=== PATIENT | female | born 1980 | race Two or more races ===

== ENCOUNTER 2017-12-12 06:03 | Day surgery (SDC) | payer SELFPAY ==
[2017-12-11 11:45] VITALS: BMI 22.1
[2017-12-12] MEDS ORDERED: BUPIVACAINE 0.25% /EPI 1:200,000 10 ML VIAL INF ONE (08:15)
--- NOTE | 2017-12-12 11:35 | OP ---
Operative Note - Note: Operative Date: 12/12/17 Pre-Operative Diagnosis: hypermastia Operation: Bilateral breast reduction Findings: hypermastia Implants: none Post-Operative Diagnosis: Same as Pre-op Surgeon: Cachorro Espinoza Refurbish Technician: Reina Lucas Anesthesia: MAC Specimens Removed: bilateral breast tissue and skin Estimated Blood Loss (mls): 20
[2017-12-12] MEDS ORDERED: ONDANSETRON 4 MG/2 ML VIAL IVPUSH PRN (12:21)
[2017-12-12] MEDS ORDERED: oxyCODONE HCL 5 MG TABLET PO PRN (12:21)
[2017-12-12] MEDS ORDERED: LACTATED RINGERS SOLUTION 1,000 ML IV SCH (12:30)
[2017-12-12] MEDS ORDERED: FAMOTIDINE IV 20 MG/12 ML VIAL IVPUSH ONE (12:36)
[2017-12-12] MEDS ORDERED: FAMOTIDINE 20 MG PREMIXED IVPB IVPB ONE (12:45)
[2017-12-12] MEDS ORDERED: oxyCODONE HCL 5 MG TABLET ONE ×2 (13:18→13:46)
[2017-12-12 13:29] VITALS: TEMP 98.2
[2017-12-12 14:44] VITALS: BP 118/72; PULSE 82
--- NOTE | 2017-12-14 17:44 | OP ---
DATE OF OPERATION: 12/12/2017 PREOPERATIVE DIAGNOSIS: Bilateral symptomatic macromastia. POSTOPERATIVE DIAGNOSIS: Bilateral symptomatic macromastia. PROCEDURE: Bilateral reduction mammoplasty. ATTENDING SURGEON: Cachorro Espinoza MD POSTER: NANCIE Branham ANESTHESIA: General endotracheal anesthesia. ESTIMATED BLOOD LOSS: 20 mL. SPECIMEN: 1. Left breast skin and tissue to pathology (238 g). 2. Right breast skin and tissue to pathology (151 g). DRAINS: None. COMPLICATIONS: None. CONDITION: Stable to recovery room, extubated. INDICATIONS: The patient is a 37-year-old female who presents with symptomatic bilateral macromastia. She is currently a D cup and desires to be a B cup. The patient is therefore brought to the operating room today for bilateral reduction mammoplasty. The risks, benefits and alternatives of the surgery were discussed with the patient in detail and all questions were answered. The risks include but are not limited to bleeding, infection, pain, need for revision or further surgery, damage to neighboring structures including nerves, arteries, veins, and tendons, decreased or absent sensation to the nipple, partial or complete nipple loss. The patient understands these risks and has elected to proceed with surgery. DESCRIPTION: After proper identification and marking the patient in the preoperative holding area, the patient was transported to the operating room and placed supine on the table, and noninvasive anesthesia monitors were applied. Intravenous access was established. General anesthesia was administered and the LMA was inserted without difficulty. SCD boots were applied to bilateral lower extremities. Intravenous antibiotics were then given. The patient's bilateral breasts were then prepped and draped in the usual sterile fashion. The preoperative markings were then reinforced and these were infiltrated with 0.25% Marcaine with 1:200,000 units of epinephrine. Attention was first turned towards the right breast, where the Garcia skin pattern markings were incised, as was the superomedial pedicle. The superomedial pedicle was then de-epithelialized. Resection of the superior breast tissue as well as the inferior breast tissue was then performed just above the level of the chest wall. This was passed off the field to Pathology and the right breast specimen was noted to weigh 151 g. A lateral pillar was designed and this was developed with electrocautery, and the superomedial pedicle was then transposed and inset using a 3-0 PDS in an interrupted buried fashion at the level of the deep dermis, followed by a 4-0 nylon in an interrupted half buried horizontal mattress fashion, with care taken to place all knots on the areolar side. The vertical and horizontal limbs were then reapproximated with a skin stapler, and at this point attention was turned towards the left side, where the exact same procedure was performed, and therefore only one side will be dictated. The patient's left breast was noted to be significantly larger preoperatively, and therefore, more breast tissue was removed on the left side. The left breast specimen was noted to weight 238 g. The patient was then sat up and good symmetry was noted, and therefore the patient was laid back down and a layered closure of the vertical and horizontal limbs were performed using a 3-0 PDS in a buried deep dermal fashion, followed by a 3-0 Monocryl in a running subcuticular fashion. Once all incisions were closed, Mastisol and Steri-Strips were applied and the patient was placed into a soft surgical bra with care taken to provide adequate padding with fluffs and ABD pads. The patient at this point was slowly awakened and was extubated without incident and was transported to recovery room in stable condition. CACHORRO ESPINOZA M.D. [id number]
--- NOTE | 2017-12-16 16:23 | PATH ---
Surgical Pathology Report Patient Name: GAURAV JUAREZ Med. Rec. #: [id number] /Age/Gender: 1980 (Age: 37) / F Account: [id number] Location: [facility] Taken: 12/12/2017 Received: 12/12/2017 Reported: 12/16/2017 Physicians: Cachorro North M.D. Specimen(s) Received A: RIGHT BREAST TISSUE AND SKIN B: LEFT BREAST TISSUE AND SKIN Clinical History Cosmetic Final Diagnosis A. BREAST TISSUE AND SKIN, RIGHT, REDUCTION: BENIGN BREAST TISSUE. SKIN WITH NO PATHOLOGIC FINDINGS. B. BREAST TISSUE AND SKIN, LEFT, REDUCTION: BENIGN BREAST TISSUE. SKIN WITH NO PATHOLOGIC FINDINGS. Electronically Signed Brit Logan M.D. Gross Description A. Received in formalin labeled "right breast skin and tissue," is a 159 g, 13.0 x 8.5 x 2.8 cm aggregate of multiple irregular, unoriented portions of fibroadipose tissue and brown, unremarkable skin. Sectioning reveals multiple foci of white fibrous tissue. Daytime Caregiver sections are submitted in 4 cassettes. B. Received in formalin labeled "left breast skin and tissue," is a 256 g, 14.0 x 12.0 x 4.0 cm aggregate of multiple irregular, unoriented portions of fibroadipose tissue and brown, unremarkable skin. Sectioning reveals multiple foci of white fibrous tissue. Daytime Caregiver sections are submitted in 4 cassettes. 12/15/2017 saudi12/15/2017
== END 2017-12-12 14:46 | disposition home or self-care (01) ==
LOC: FASU 06:03
PROVIDERS: ATTEND Plastic Surgery
PROC: 0H0V0ZZ Alteration of Bilateral Breast, Open Approach (ICD-10-PCS; principal; 2017-12-12 08:15)
DX: N62 Hypertrophy of breast (principal)
CPT/HCPCS: 84703; 88305-TC; 94760